=== PATIENT | male | born 1985 | race Hispanic/Latino ===

== ENCOUNTER 2023-01-06 19:19 | Emergency (ER) | payer OTHER, SELFPAY ==
[2023-01-06] VITALS (15 sets, daily range): BP systolic 133–163; BP diastolic 89–102; PULSE 70–99; RESP 14–25; TEMP 36–36.6; O2SAT 97–100
--- NOTE | ~2023-01-06 | XR_ITS ---
EXAMINATION: XR chest 2V DATE: 01/06/2023 20:05 INDICATION: Shortness of breath TECHNIQUE: PA and lateral views of the chest are obtained. COMPARISON: 05/19/2018 FINDINGS: The lungs are free of acute opacities. No pleural effusion or pneumothorax. The cardiomedia stinal silhouette is normal. The visualized bones and soft tissues are unremarkable. IMPRESSION: 1. No acute cardiopulmonary abnormality. Reviewed, dictated and finalized at location F.
--- NOTE | 2023-01-06 19:23 | ECG_ITS ---
Measurements Intervals Rufe Rate: 77 P: 30 DE: 185 QRS: 38 QRSD: 105 T: 89 QT: 362 QTc: 410 Interpretive Statements SINUS RHYTHM NONSPECIFIC T-WAVE ABNORMALITY- HIGH LATERAL LEADS BASELINE ARTIFACT- I, AVL BORDERLINE ECG NO PREVIOUS ECG AVAILABLE FOR COMPARISON Electronically Signed On 01-06-2023 22:38:27 CDT by Reid Kaufman D.O.
[2023-01-06 19:37] LABS: Basophils Percent Auto 0.2 % (0.2-1.2); Eosinophils Absolute Auto 0.1 K/mm3 (0-0.3); Eosinophils Percent Auto 1.6 % (0-4.4); Hematocrit 48.2 % (42.0-52.0); Hemoglobin 16.2 g/dL (14.0-18.0); Immature Granulocyte Absolute 0.03 K/mm3 (0.00-0.031); Immature Granulocyte Percent A 0.3 % (0-0.5); Lymphocytes Absolute Auto 2.89 K/mm3 (0.9-3.2); Lymphocytes Percent Auto 33.3 % (18.3-44.2); Mean Corpuscular HGB Conc 33.6 g/dl (32-36); Mean Corpuscular Hemoglobin 28.5 pg (26-34); Mean Corpuscular Volume 84.7 fl (80-100); Mean Platelet Volume 8.3 fl (7.4-10.4); Monocytes Absolute Auto 0.5 K/mm3 (0.1-0.6); Monocytes Percent Auto 5.4 % (2.6-8.5); Neutrophils Absolute Auto 5.1 K/mm3 (1.3-6.7); Neutrophils Percent Auto 59.2 % (45.5-73.1); Platelet Count Result 216 k/mm3 (150-375); Red Blood Count 5.69 M/mm3 (4.6-6.20); White Blood Count 8.7 K/mm3 (4.5-10.0)
--- NOTE | 2023-01-06 19:44 | ED.ARRPALP ---
HPI - Arrhythmia/Palpitations General Chief Complaint: Arrhythmia/Palpitations Stated Complaint: Palpation, SOB Time Seen by Provider: 01/06/23 19:35 History of Present Illness HPI narrative: 37-year-old male presented to the emergency department for evaluation of a head fog and intermittent heart palpitations with associated generalized fatigue. Patient states over the last few months this has been happening more frequently. Patient states he is otherwise pretty healthy. Patient reports he does have increased anxiety with this. Patient states he did take some penicillin from [place] today to see if it would help, this did not help with his symptoms. Patient denies any other medications. Patient denies any recent COVID infections but states he has had COVID approximately 3 times. Patient has no prior cardiac history. Patient denies history of diabetes. Related Data Home Medications Medication Instructions Recorded Confirmed fluticasone propionate 50 1 spray intranasal BID 09/12/19 mcg/actuation nasal spray,suspension (Allergy Relief (fluticasone)) omeprazole 20 mg capsule,delayed 20 mg PO DAILY 09/12/19 release prednisone 20 mg tablet 20 mg PO DAILY 09/12/19 Allergies Allergy/AdvReac Type Severity Reaction Status Date / Time No Known Allergies Allergy Verified 01/06/23 19:19 Review of Systems Review of Systems: All systems reviewed & are unremarkable except as noted in HPI and below PMFSH Social History Social History Smoking status: Light tobacco smoker Alcohol intake: current Exam Narrative: APPEARANCE: Well appearing, no pain, no distress, well-nourished. HEAD: normocephalic, atraumatic. EYES: PERRLA/EOMI, conjunctivae clear. NOSE: Normal no drainage EARS:TMS clear with good light reflex. THROAT: Pharynx clear, no exudate. NECK: Supple. No adenopathy, no masses. RESPIRATORY: Airway patent, respirations nonlabored. Clear to auscultation bilaterally, no rales, rhonchi, wheezing. CARDIOVASCULAR: Regular rate and rhythm without murmurs rubs or gallops. ABDOMINAL: Soft, nontender, nondistended, normal bowel sounds MUSCULOSKELETAL: Moves all extremities. Strength/ROM intact, No edema, No calf tenderness. NEURO: Alert. Cranial nerves II through XII intact. Grossly intact SKIN: Warm, dry. Normal Color Course Course Emergency Course: 37-year-old male presenting for evaluation of generalized fatigue and intermittent heart palpitations. Differential diagnosis does include new onset diabetes, dehydration, viral illness, electrode abnormality, cardiac arrhythmia. Patient is normal sinus rhythm on the monitor and EKG shows normal sinus rhythm. Baseline labs including TSH and mag were ordered. Patient is afebrile with no leukocytosis. Patient's bedside glucose was not elevated. 11:11 PM patient is afebrile with no leukocytosis. Patient's CMP is within normal limits. Patient had negative serial troponins. Patient had a normal TSH and mag level. Chest x-ray showed no acute cardiopulmonary abnormality. And patient was negative for COVID RSV and for influenza. Patient was updated on the results of his work-up. Patient was encouraged of close follow-up with his primary care physician and the potential need for Holter monitor was discussed with the patient. All question concerns were addressed and patient was well-appearing at time of discharge. Patient's carbon oxide level was 0. Vital Signs Vital signs: Vital Signs Temperature 96.8 F L 01/06/23 19:24 Pulse Rate 84 01/06/23 19:24 Respiratory Rate 20 01/06/23 19:24 Blood Pressure 163/102 H 01/06/23 19:24 Pulse Oximetry 98 01/06/23 19:24 Oxygen Delivery Room Air 01/06/23 19:24 Temperature 98 F 01/06/23 23:22 Pulse Rate 70 01/06/23 23:22 Respiratory Rate 18 01/06/23 23:22 Blood Pressure 133/89 01/06/23 23:22 Pulse Oximetry 99 01/06/23 23:22 Oxygen Delivery Room Air 01/06/23 19:24 ALEM Barron
[2023-01-06 19:47] LABS: Glucose Point of Care 99 mg/dl (65-105)
[2023-01-06 19:48] LABS: INR 1.1
[2023-01-06 19:49] LABS: Alanine Aminotransferase 48 U/L (6-50); Albumin Level 4.8 g/dL (3.5-5.1); Alkaline Phosphatase 108 U/L (38-126); Anion Gap 7 mmol/L (8-16); Aspartate Amino Transferase 31 U/L (17-59); Bilirubin,Total 0.5 mg/dL (0.2-1.3); Blood Urea Nitrogen 15 mg/dL (9-20); Calcium 9.2 mg/dL (8.4-10.2); Carbon Dioxide 30 mmol/L (22-30); Chloride 103 mmol/L (98-107); Estimated Glomerular Filt Rate > 60; Glucose 96 mg/dL (65-110); Lipase 108 U/L (23-300); Potassium 3.8 mmol/L (3.4-5.0); Sodium 140 mmol/L (137-145)
[2023-01-06 19:50] LABS: Partial Thromboplastin Time 28.4 SECONDS (22.3-36.8)
[2023-01-06] MEDS: SODIUM CHLORIDE 0.9% IV 1,000 ML 999 ML IV CONT (19:56)
[2023-01-06 20:00] LABS: Troponin I < 0.012 ng/mL (0.000-0.034)
[2023-01-06 20:35] LABS: Influenza A QL RT-PCR Negative (Negative); Influenza B QL RT-PCR Negative (Negative); RSV RNA, RT-PCR Negative (Negative); SARS-CoV-2 RNA PCR Negative
[2023-01-06 23:02] LABS: Troponin I < 0.012 ng/mL (0.000-0.034)
== END 2023-01-06 23:23 | disposition home or self-care (01) ==
PROVIDERS: Emergency Medicine; Emergency Provider Emergency Medicine
DX: R00.2 Palpitations (principal); R53.83 Other fatigue; F41.9 Anxiety disorder, unspecified; Z20.822 Contact with and (suspected) exposure to COVID-19; F17.200 Nicotine dependence, unspecified, uncomplicated; Z86.16 Personal history of COVID-19; R94.31 Abnormal electrocardiogram [ECG] [EKG]
CPT/HCPCS: 36415; 71046; 80053; 82948; 83690; 83735; 84443; 84484; 85025; 85610; 85730; 87637; 93005; 96360; 96361; 99284; J7030